=== PATIENT | male | born 1960 | race Hispanic/Latino ===

== ENCOUNTER 2017-11-22 13:02 | Inpatient (IN) | payer OTHER, SELFPAY ==
[~2017-11-22] VITALS: Ht 180.3 cm; Wt 101.3 kg
[~2017-11-22 13:02] MED LIST: AEC81 PO; ATOR40TA69 PO; CLOP75TA14 PO; GLIP5TAB11 PO; HYDR25TA PO; METF10004 PO; METO50TA18 PO
[2017-11-22 13:39] LABS: EOSINOPHILS % (AUTO) 1.8 % (0.0-8.0); HEMATOCRIT 41.5 % (42-54); LYMPHOCYTES % (AUTO) 18.6 % (21.0-51.0); MEAN CORPUSCULAR HEMOGLOBIN 26.8 pg (27.0-33.0); MEAN CORPUSCULAR HGB CONC 32.9 g/dL (32.0-36.0); MEAN CORPUSCULAR VOLUME 81.3 fL (79-99); MONOCYTES % (AUTO) 6.4 % (3.0-13.0); NEUTROPHILS % (AUTO) 72.2 % (40.0-77.0); PLATELET COUNT (AUTO) 272 K/uL (130-400); RED BLOOD CELL COUNT(AUTO) 5.11 MIL/uL (4.50-6.20); RED CELL DISTRIBUTION WIDTH 14.2 % (11.0-15.5); WHITE BLOOD COUNT (AUTO) 10.3 K/uL (4.8-10.8)
[2017-11-22 13:51] LABS: CREATININE 1.4 mg/dL (0.5-1.5); POTASSIUM 4.3 mmol/L (3.5-5.1)
[2017-11-22 14:02] LABS: INR 0.91 (0.85-1.15); PARTIAL THROMBOPLASTIN TIME 27.2 SEC (26.3-35.5); PROTHROMBIN TIME 9.6 SEC (9.6-11.6)
[2017-11-22 14:04] LABS: CREATINE KINASE MB 1.3 ng/mL (0.5-3.6)
[2017-11-22 14:11] LABS: ALBUMIN 3.3 g/dL (3.5-5.0); BILIRUBIN,TOTAL 0.3 mg/dL (0.2-1.0); TOTAL PROTEIN, SERUM 7.6 g/dL (6.0-8.3)
[2017-11-22] MEDS ORDERED: ASPIRIN 325 MG TABLET ONE (14:55)
[2017-11-22 17:35] VITALS: BP 173/87
[2017-11-22] MEDS ORDERED: NITR0.4T SL (17:56)
[2017-11-22] MEDS ORDERED: LOVA20TA3 PO (17:56)
[2017-11-22] MEDS ORDERED: LISI-613 PO (17:56)
[2017-11-22 20:10] VITALS: BP 185/64
[2017-11-22 20:38] LABS: CREATINE KINASE MB 1.2 ng/mL (0.5-3.6); CREATINE KINASE, TOTAL 54 U/L (21-232); MYOGLOBIN 58 ng/mL (10-92); TROPONIN I < 0.04 ng/mL (0.00-0.06)
[2017-11-22 21:30] VITALS: BP 169/91
[2017-11-22 23:09] VITALS: BP 153/92
[2017-11-23 02:06] LABS: CREATINE KINASE MB 0.8 ng/mL (0.5-3.6); CREATINE KINASE, TOTAL 44 U/L (21-232); MYOGLOBIN 47 ng/mL (10-92); TROPONIN I < 0.04 ng/mL (0.00-0.06)
[2017-11-23] MEDS ORDERED: ONDANSETRON HCL 4 MG/2 ML VIAL IV PRN (02:15)
[2017-11-23] MEDS ORDERED: HYDRALAZINE HCL 20 MG/ML VIAL IV PRN (02:15)
[2017-11-23 03:46] VITALS: BP 146/97
[2017-11-23 04:05] LABS: EOSINOPHILS % (AUTO) 3.2 % (0.0-8.0); HEMATOCRIT 36.8 % (42-54); LYMPHOCYTES % (AUTO) 28.6 % (21.0-51.0); MEAN CORPUSCULAR HEMOGLOBIN 27.5 pg (27.0-33.0); MEAN CORPUSCULAR HGB CONC 33.9 g/dL (32.0-36.0); MEAN CORPUSCULAR VOLUME 81.2 fL (79-99); NEUTROPHILS % (AUTO) 59.2 % (40.0-77.0); PLATELET COUNT (AUTO) 250 K/uL (130-400); RED BLOOD CELL COUNT(AUTO) 4.54 MIL/uL (4.50-6.20); RED CELL DISTRIBUTION WIDTH 14.4 % (11.0-15.5)
[2017-11-23 05:10] LABS: CREATININE 1.3 mg/dL (0.5-1.5); POTASSIUM 3.5 mmol/L (3.5-5.1)
[2017-11-23 05:33] LABS: THYROID STIMULATING HORMONE 1.88 uIU/mL (0.36-3.74)
[2017-11-23 07:26] VITALS: BP 162/102
[2017-11-23] MEDS: FAMOTIDINE 20MG TAB 20 MG TAB PO SCH ×2 (08:44→20:26)
[2017-11-23] MEDS: ASPIRIN 325 MG TABLET PO SCH (08:44)
[2017-11-23] MEDS: ENOXAPARIN SODIUM 40 MG/0.4 ML SYRINGE SQ SCH (08:47)
[2017-11-23] MEDS: ATORVASTATIN CALCIUM 20 MG TABLET PO SCH ×2 (08:47→20:28)
[2017-11-23 11:23] VITALS: BP 145/98
[2017-11-23 16:19] VITALS: BP 143/94
[2017-11-23] MEDS ORDERED: LIDOCAINE HCL-MPF 1% 2ML VIAL IVP PRN (16:30)
[2017-11-23] MEDS ORDERED: POTASSIUM CHLORIDE 10% ELIXIR 20 MEQ/15 ML UDCUP PO PRN (16:30)
[2017-11-23] MEDS ORDERED: POTASSIUM CHLORIDE 20MEQ/100ML 100 ML IV PRN (16:30)
[2017-11-23] MEDS: POTASSIUM CHLORIDE 20 MEQ ERTAB PO PRN ×2 (17:07→18:43)
[2017-11-23 19:29] VITALS: BP 145/100
[2017-11-23] MEDS: ACETAMINOPHEN 325 MG TAB PO PRN (20:29)
[2017-11-23 23:16] VITALS: BP 151/99
[2017-11-24] VITALS (7 sets, daily range): BP systolic 104–186; BP diastolic 67–110
[2017-11-24] MEDS: ASPIRIN 325 MG TABLET PO SCH (10:04)
[2017-11-24] MEDS: FAMOTIDINE 20MG TAB 20 MG TAB PO SCH ×2 (10:04→21:17)
[2017-11-24] MEDS: ENOXAPARIN SODIUM 40 MG/0.4 ML SYRINGE SQ SCH (10:05)
[2017-11-24] MEDS: ACETAMINOPHEN 325 MG TAB PO PRN ×2 (11:36→21:50)
[2017-11-24] MEDS ORDERED: NITROGLYCERIN 0.4 MG SL TAB SL SCH (12:30)
[2017-11-24] MEDS ORDERED: DEXTROSE 50%-WATER 50 ML DISP.SYRIN IV PRN (13:15)
[2017-11-24] MEDS ORDERED: GLUCAGON 1MG KIT 1 MG ML IM PRN (13:15)
[2017-11-24] MEDS ORDERED: CLOPIDOGREL BISULFATE 75 MG TAB PO ONE (15:00)
[2017-11-24] MEDS ORDERED: LISINOPRIL 20 MG TABLET PO ONE (15:00)
[2017-11-24] MEDS ORDERED: ATORVASTATIN CALCIUM 20 MG TABLET PO ONE (15:00)
[2017-11-24] MEDS ORDERED: HYDROCHLOROTHIAZIDE 25 MG TABLET PO ONE (15:00)
[2017-11-24] MEDS ORDERED: GLIPIZIDE 5 MG TABLET PO ONE (15:00)
[2017-11-24] MEDS ORDERED: METOPROLOL TARTRATE 25 MG TAB PO ONE (15:00)
[2017-11-24] MEDS: INSULIN HUMULIN R 100 UNIT/ML 3ML SQ SCH ×2 (16:17→21:00)
[2017-11-24] MEDS ORDERED: ATORVASTATIN CALCIUM 40 MG TABLET PO SCH (21:00)
[2017-11-24] MEDS ORDERED: ATORVASTATIN CALCIUM 20 MG TABLET PO SCH (21:00)
[2017-11-24] MEDS: METOPROLOL TARTRATE 25 MG TAB PO SCH (21:17)
[2017-11-24] MEDS: METOPROLOL TARTRATE 50 MG TAB PO SCH (21:17)
[2017-11-25 03:39] VITALS: BP 116/74
[2017-11-25] MEDS: INSULIN HUMULIN R 100 UNIT/ML 3ML SQ SCH ×3 (06:03→16:30)
[2017-11-25 07:20] VITALS: BP 145/90
[2017-11-25] MEDS ORDERED: GLIPIZIDE 5 MG TABLET PO SCH (09:00)
[2017-11-25] MEDS ORDERED: LISINOPRIL 20 MG TABLET PO SCH (09:00)
[2017-11-25] MEDS ORDERED: CLOPIDOGREL BISULFATE 75 MG TAB PO SCH (09:00)
[2017-11-25] MEDS ORDERED: ASPIRIN 81 MG EC TAB PO SCH (09:00)
[2017-11-25] MEDS: METOPROLOL TARTRATE 25 MG TAB PO SCH (09:00)
[2017-11-25] MEDS ORDERED: HYDROCHLOROTHIAZIDE 25 MG TABLET PO SCH (09:00)
[2017-11-25] MEDS: FAMOTIDINE 20MG TAB 20 MG TAB PO SCH (09:44)
[2017-11-25] MEDS: METOPROLOL TARTRATE 50 MG TAB PO SCH (09:46)
[2017-11-25] MEDS ORDERED: ATORVASTATIN CALCIUM 20 MG TABLET PO SCH (11:00)
[2017-11-25 11:35] VITALS: BP 141/88
[2017-11-25 16:15] VITALS: BP 135/82
== END 2017-11-25 17:45 | disposition home or self-care (01) | DRG 948 ==
LOC: EDH 13:02 → 2DH 13:03 → 2AH 17:17
PROVIDERS: ADMIT Family Medicine; ATTEND Family Medicine
DX: R53.1 Weakness (principal); I48.91 Unspecified atrial fibrillation; I10 Essential (primary) hypertension; E11.9 Type 2 diabetes mellitus without complications; E78.5 Hyperlipidemia, unspecified; I25.10 Atherosclerotic heart disease of native coronary artery without angina pectoris; Z86.73 Personal history of transient ischemic attack (TIA), and cerebral infarction without residual deficits; I25.5 Ischemic cardiomyopathy; Z95.0 Presence of cardiac pacemaker; I25.2 Old myocardial infarction
CPT/HCPCS: 36415; 70450; 72100; 80048; 80053; 80061; 82550; 82553; 82948; 83874; 84443; 84484; 85025; 85610; 85730; 92610; 93005; 93306; 93880; 99291; J0360; J1650; J1815

== ENCOUNTER → 2019-07-11 | Outpatient (CLI) | payer OTHER, MEDICARE ==
[~2019-07-11] MED LIST changes: +LISI-613 PO; +LOVA20TA3 PO; +METF-446 PO; -METF10004 PO; +NITR0.4T SL
== END | disposition home or self-care (01) ==
LOC: RAH 09:09
PROVIDERS: ATTEND Internal Medicine Cardiovascular Disease
DX: I08.0 Rheumatic disorders of both mitral and aortic valves (principal)
CPT/HCPCS: 93306

== ENCOUNTER → 2019-08-02 | Outpatient (CLI) | payer OTHER, MEDICARE ==
--- NOTE | 2019-07-18 12:58 | NUR ---
PT WAS A NO SHOW FOR DOS 07/18/19
[~2019-08-02] VITALS: Ht 180.3 cm; Wt 104.3 kg
[~2019-08-02] MED LIST changes: +REGADENOSON 0.4 MG/5 ML PF SYG IVP SCH
== END | disposition home or self-care (01) ==
LOC: SHCH 09:17
PROVIDERS: ATTEND Internal Medicine Cardiovascular Disease
DX: I25.10 Atherosclerotic heart disease of native coronary artery without angina pectoris (principal); I11.9 Hypertensive heart disease without heart failure
CPT/HCPCS: 78452; 93017; 96374; A9500 ×2; J2785

== ENCOUNTER → 2020-02-14 | Outpatient (CLI) | payer OTHER, MEDICARE ==
[~2020-02-14] MED LIST changes: -REGADENOSON 0.4 MG/5 ML PF SYG IVP SCH
== END | disposition home or self-care (01) ==
LOC: SHCH 10:46
PROVIDERS: ATTEND Internal Medicine Cardiovascular Disease
DX: I10 Essential (primary) hypertension (principal)
CPT/HCPCS: 93306; 93356; 93880

== ENCOUNTER → 2020-11-01 | Outpatient (CLI) | payer OTHER, MEDICARE ==
[~2020-11-01] MED LIST changes: +REGADENOSON 0.4 MG/5 ML PF SYG IVP SCH
== END | disposition home or self-care (01) ==
LOC: SHCH 08:40
PROVIDERS: ATTEND Internal Medicine Cardiovascular Disease
DX: I25.10 Atherosclerotic heart disease of native coronary artery without angina pectoris (principal)
CPT/HCPCS: 78452; 93017; 96374; A9500 ×2; J2785

== ENCOUNTER → 2022-06-11 | Outpatient (CLI) | payer OTHER, MEDICARE ==
[~2022-06-11] MED LIST changes: +ALBUTEROL 0.083% 2.5 MG/3 ML INH IH ONE; -LISI-613 PO; +LISI20TA24 PO; -REGADENOSON 0.4 MG/5 ML PF SYG IVP SCH
== END | disposition home or self-care (01) ==
LOC: RESP 09:05
PROVIDERS: ATTEND Internal Medicine Cardiovascular Disease
DX: R06.00 Dyspnea, unspecified (principal)
CPT/HCPCS: 94060; 94727; 94729

== ENCOUNTER → 2022-12-09 | Outpatient (CLI) | payer OTHER, MEDICARE ==
[~2022-12-09] MED LIST changes: -ALBUTEROL 0.083% 2.5 MG/3 ML INH IH ONE; +CLOP-31 PO; -CLOP75TA14 PO; +REGADENOSON 0.4 MG/5 ML PF SYG IVP SCH
== END | disposition home or self-care (01) ==
LOC: SHCH 08:55
PROVIDERS: ATTEND Internal Medicine Cardiovascular Disease
DX: I11.0 Hypertensive heart disease with heart failure (principal); I50.22 Chronic systolic (congestive) heart failure; I25.2 Old myocardial infarction; I44.2 Atrioventricular block, complete; E78.5 Hyperlipidemia, unspecified; Z95.0 Presence of cardiac pacemaker; Z79.899 Other long term (current) drug therapy
CPT/HCPCS: 78452; 96374; 93017; J2785; A9500 ×2

== ENCOUNTER → 2023-08-27 | Outpatient (CLI) | payer OTHER, MEDICARE ==
[~2023-08-27] MED LIST changes: -ATOR40TA69 PO; -CLOP-31 PO; +DULA1.5P SQ; +FOLI1TAB85 PO; -GLIP5TAB11 PO; -LISI20TA24 PO; -LOVA20TA3 PO; +METO-409 PO; -METO50TA18 PO; -NITR0.4T SL; -REGADENOSON 0.4 MG/5 ML PF SYG IVP SCH; +SACU1TAB PO; +SIMV-46 PO; +TRAM50TA4 PO; +VITAD50000 PO
== END | disposition home or self-care (01) ==
LOC: CANSCHCLI → RAH 10:00
PROVIDERS: ATTEND Internal Medicine Cardiovascular Disease
DX: G31.89 Other specified degenerative diseases of nervous system (principal); I67.9 Cerebrovascular disease, unspecified
CPT/HCPCS: 70450

== ENCOUNTER → 2023-11-11 | Outpatient (CLI) | payer OTHER, MEDICARE | END | disposition home or self-care (01) | LOC: SHCH 09:07 | PROVIDERS: ATTEND Internal Medicine Cardiovascular Disease | DX: I65.23 Occlusion and stenosis of bilateral carotid arteries (principal) | CPT/HCPCS: 93880 ==

== ENCOUNTER → 2024-08-10 | Outpatient (CLI) | payer OTHER, MEDICARE | END | disposition home or self-care (01) | LOC: SHCH 09:10 | PROVIDERS: ATTEND Internal Medicine Cardiovascular Disease | DX: I48.0 Paroxysmal atrial fibrillation (principal) | CPT/HCPCS: 93306 ==

== ENCOUNTER → 2024-11-17 | Outpatient (CLI) | payer OTHER, MEDICARE ==
[2024-11-17] MEDS: REGADENOSON 0.4 MG/5 ML PF SYG IVP ONE (15:08)
--- NOTE | 2024-11-18 08:14 | HMCSR ---
APPROVED REPORT Height: 6 ft 1in Weight: 210 lbs TEST INDICATIONS Congestive Heart Failure, i50.22 Chronic syst CHF The imaging protocol used to acquire images was Rest Tc-99m/stress Tc-99m 1 day Consent: The procedure was explained and understood by the patient. Informerd consent was witnessed Dion Hi RN First, low dose rest was performed then high dose stress. RESTING DATA: The resting ekg shows: A sensed V paced Rest SPECT myocardial perfusion imaging was performed in supine position 93 minutes following the int ravenous injection of 10.7 mCi of Tc-99 Sestamibi. Time of rest injection: 08:18: Date: 11/17/2024 Time of rest imagin:51: Date: 11/17/2024 PHARMACOLOGIC STRESS: Pharmacologic stress test was performed by injecting regadenoson 0.4 mg IV push followed by the intra venous injection of 32.0 mCi of Tc-99 Sestamibi. Time of stress injection: 10:17: Date: 11/17/2024 Time of stress imagin:00: Date: 11/17/2024 Heart Rate at time of stress injection: 74 bpm. Gated Stress SPECT was performed 103 minutes after stress injection. The images were gated to evaluate regional wall motion and calculate left ventricular ejection fracti on. STRESS DETAILS Reason for Termination: Infusion complete Stress Symptoms: Dyspnea Max HR Achieved: 83 bpm % of APMHR Achieved: 53 Max Blood Pressure: 191/101 mmHg Stress ECG: A sensed V paced Conclusion Inferior, apical and septal infarct No ischemia Dilated LV at rest and stress Inferior and apical akinesis LV ejection fractjion 34% No increased lung uptake
== END | disposition home or self-care (01) ==
LOC: SHCH 07:58
PROVIDERS: ATTEND Internal Medicine Cardiovascular Disease
DX: R06.09 Other forms of dyspnea (principal); I11.0 Hypertensive heart disease with heart failure; I50.22 Chronic systolic (congestive) heart failure
CPT/HCPCS: 78452; 93017; J2785; A9500 ×2

== ENCOUNTER → 2024-12-31 | Outpatient (CLI) | payer OTHER, MEDICARE ==
--- NOTE | 2025-01-03 08:56 | HMCSR ---
APPROVED REPORT EXAM: Two-dimensional and M-mode echocardiogram with Doppler and color Doppler. INDICATION ICD: I25.5 Ischemic cardiomyopathy 2D Dimensions RVDd4.1 cmLVEF(%)28.7 (>50%)LVEF(%, simp.)41 % IVSd1.1 (0.7-1.1cm)FS(%)13 %LA ESV INDEX (BP)28.63 mL/m2 LVDd5.1 (3.8-5.6cm)LA (2D)4.4 (1.6-4.0cm) PWd1.2 (0.7-1.1cm)Ao Root(2D)3.6 (2.0-3.7cm) IVSs1.5 cmLVOT diam2.2 (1.8-2.4cm) LVDs4.4 (2.5-4.0cm) PWs1.5 cm M-Mode Dimensions EPSS1.7 cm LA (MM)4.4 (1.6-4.0cm) Ao Root(MM)4.1 (2.0-3.7cm) Aortic Valve AoV Vmax1.1 m/Ashley Peak GR5.1 mmHgLVOT Vmax0.7 m/s AoV VTI0.2 mAo Mean GR2.9 mmHgLVOT VTI0.15 m JERARDO (VMAX)2.3 cm2AVA (VTI) 2.3 cm2 Mitral Valve MV E Vmax84.5 cm/sDECEL Mevp559 ms MV A Kwuk266.9 cm/sP 1/2 T34 ms E/A ratio0.8MVA (PHT)6.6 cm2 TDI E/E' Sribgb24.1E/E' Aqlsysg19.1 Medial E' Peak V6.00 cm/sLateral E' Peak V6.00 cm/s Pulmonary Valve PV Vmax0.6 m/s Tricuspid Valve TR Vmax2.5 m/sRAP (EST) 3 fqKxHUWJ29.4 mmHg TR Peak GR25.4 mmHg Left Ventricle The left ventricle is normal size. Hypokinetic distal inferior wall and apex. There is borderline con centric left ventricular hypertrophy. LVEF is 40-45%. Stage I diastolic dysfunction. Right Ventricle The right ventricle is normal size. The right ventricular systolic function is normal. Device lead is present in the right ventricle. Atria The left atrium size is normal. The right atrium size is normal. Aortic Valve The aortic valve is normal in structure. No aortic regurgitation is present. There is no aortic valvu lar stenosis. Mitral Valve The mitral valve is normal in structure. There is mild mitral valve regurgitation noted. There is no mitral valve stenosis. Tricuspid Valve The tricuspid valve is normal in structure. There is trace of tricuspid valve regurgitation noted. Pulmonic Valve The pulmonary valve is normal in structure. There is no pulmonic valvular regurgitation. Great Vessels The aortic root is normal in size. The IVC is normal in size and collapses >50% with inspiration. Pericardium There is no pericardial effusion. Other Information Quality : Adequate Conclusion LVEF is 40-45%. Stage I diastolic dysfunction. Hypokinetic distal inferior wall and apex. There is mild mitral valve regurgitation noted. There is trace of tricuspid valve regurgitation noted. Device lead is present in the right ventricle.
== END | disposition home or self-care (01) ==
LOC: SHCH 09:03
PROVIDERS: ATTEND Student in an Organized Health Care Education/Training Program
DX: I34.0 Nonrheumatic mitral (valve) insufficiency (principal); I25.5 Ischemic cardiomyopathy
CPT/HCPCS: 93306

== ENCOUNTER 2025-09-12 10:12 | Inpatient (IN) | payer OTHER, MEDICARE ==
[~2025-09-12] VITALS: Ht 177.8 cm; Wt 117.9 kg
[~2025-09-12 10:12] MED LIST changes: -AEC81 PO; +AMIO200T73 PO; +ATOR40TA71 PO; +DULA0.75 SQ; -DULA1.5P SQ; +FERR-82 PO; +FOLI0.8T53 PO; +GABA-529 PO; -HYDR25TA PO; -METF-446 PO; -METO-409 PO; +METO25TA6 PO; +MIDO10TA3 PO; -SACU1TAB PO; -SIMV-46 PO; +TAMS-55 PO; -TRAM50TA4 PO; -VITAD50000 PO
--- NOTE | 2025-09-12 10:25 | ERN ---
ED Note History of Present Illness Stated Complaint: SENT BY DETENTION FOR HYPOTENSION Chief Complaint: Hypotension Time Seen by MD: 10:25 Dictation: Patient is a 64-year-old female coming in via EMS [place] a local prison with complaints of being hypotensive this morning. Per the EMS staff his blood pressure was running 90s systolic. He does take midodrine for known hypotension. When EMS arrived they said he was hypotensive and then with a 2nd blood pressure check without intervention he was hypertensive. He is alert with generalized body weakness. He does have a pacemaker in place and two to 3+ edema lower extremities. He states he is not having any pain anywhere no headache no chest pain no back pain. Allergies: Coded Allergies: iodine (Unverified Allergy, Unknown, 09/12/15) Home Meds Reported Medications Ferrous Sulfate (Iron) 325 Mg (65 Mg Iron) Tablet, 1 TAB PO BID for 30 Days, #60 TAB 0 Refills 08/25/25 Gabapentin (Gabapentin) 100 Mg Capsule, 100 CAP PO TID for 30 Days, #90 CAP 0 Refills 08/25/25 Metoprolol Tartrate (Metoprolol Tartrate) 25 Mg Tablet, 1 TAB PO BID for 30 Days, #60 TAB 0 Refills 08/25/25 Folic Acid/Vit B Complex and C (Nephro Vitamins Tablet) 0.8 Mg Tablet, 0.8 MG PO DAILY, TAB 08/25/25 Midodrine HCl (Midodrine HCl) 10 Mg Tablet, 1 TAB PO TID for 30 Days, #90 TAB 0 Refills 08/25/25 Atorvastatin Calcium (Atorvastatin Calcium) 40 Mg Tablet, 1 TAB PO HS for 30 Days, #30 TAB 0 Refills 05/22/25 Tamsulosin HCl (Flomax) 0.4 Mg Cap.er.24h, 0.4 MG PO HS, CAPSULE. 05/22/25 Amiodarone HCl (Amiodarone HCl) 200 Mg Tablet, 200 MG PO BID, TAB 05/22/25 Dulaglutide (Trulicity) 0.75 Mg/0.5 Ml Pen.injctr, 0.5 ML SQ QWEEK for 28 Days, #2 ML 0 Refills 05/22/25 Vit B Cmplx 3/FA/Vit C/Biotin (Kristina-Navjot Rx Tablet) 1 Each Tablet, 1 EACH PO AM, TAB 02/06/23 Past Medical History Past Medical History: CHF, Diabetes-Type II, Heart Disease, Hypotension, CT, Renal Failure Additional Past Medical Hx: WEARS LIFEVEST Surgical History: Unknown RN Note Reviewed/Agreed w/PFSH: Yes Review of System Dictation CONSTITUTIONAL: Negative except for HPI generalized body weakness hypotension HEAD/FACE: Negative except for HPI EENT: Negative except for HPI RESPIRATORY: Negative except for HPI GASTROINTESTINAL/ABDOMINAL: Negative except for HPI GENITOURINARY: Negative except for HPI MUSCULOSKELETAL: Negative except for HPI INTEGUMENTARY: Negative except for HPI NEUROLOGICAL/PSYCH: Negative except for HPI HEMATOLOGIC/LYMPHATIC: Negative except for HPI All Systems Negative, Except as noted above. 13 point review of systems assessed and all negative except for above. Initial Vital Sign VS Vital Signs Date Time Temp Pulse Resp B/P (MAP) Pulse Ox O2 Delivery O2 Flow Rate FiO2 09/12/25 10:28 98.2 76 17 63/44 91 Room Air 0 09/12/25 11:41 21 Physical Exam Dictation Vital Signs reviewed General Appearance: Alert, oriented x 3, patient very debilitated and weak. Answering questions appropriately. Head and Face: non-traumatic. Eyes: PERRL, pink conjunctivas, eyelid no trauma, anterior chamber with arcus senilis. Ears: Pinnas intact and no signs of trauma or erythema ear canals clear and no discharge TM no erythema Nose: No discharge, no bleeding. Oropharynx: Mouth normal, tongue pink, pharynx clear,no erythema, tonsils no exudates, no abscesses noted, mucous membrane moist Neck: Supple, non-tender, no thyromegaly, no masses, no JVD, no bruits Breast:Deferred Chest:No tenderness, no crepitus, no paradoxical movement, no retractions Lungs:Clear, well-ventilated, symmetric, no rales, no wheezing, no rhonchi, no stridor, good breath sounds bilaterally Heart: Regular rate, regular rhythm, no murmur, no gallops Vascular: Two to 3+ peripheral edema, Abdomen: Soft, positive bowel sounds, nondistended, no guarding, nontender, no rebound, no masses no hepatomegaly, no splenomegaly, no Leiva's sign, no hernias. Rectal: Deferred Genital: Deferred Neurological: Normal speech, generalized weakness all extremities. Musculoskeletal: Neck nontender, full range of motion, back nontender, full range of motion, Extremities: nontender, full range of motion Skin: Color pink, dry, no turgor, no rash, no lacerations, no abrasions, no contusions. Lymphatic: Deferred Results (Laboratory/Radiology) Laboratory/Radiology Laboratory Tests Test 09/12/25 10:36 09/12/25 12:07 09/12/25 13:41 09/12/25 14:06 White Blood Count 14.6 K/uL (4.8-10.8) H Red Blood Count 3.42 MIL/uL (4.50-6.20) L Hemoglobin 9.5 g/dL (14.0-18.0) L Hematocrit 31.0 % (42-54) L Mean Corpuscular Volume 90.6 fL (79-99) Mean Corpuscular Hemoglobin 27.8 pg (27.0-33.0) Mean Corpuscular Hemoglobin Concent 30.6 g/dL (32.0-36.0) L Red Cell Distribution Width 25.2 % (11.0-15.5) H Platelet Count 113 K/uL (130-400) L Mean Platelet Volume 10.5 fL (7.5-10.5) Immature Granulocyte % (Auto) 1.4 % (0-1) H Neutrophils (%) (Auto) 78.3 % (40.0-77.0) H Lymphocytes (%) (Auto) 15.0 % (21.0-51.0) L Monocytes (%) (Auto) 3.8 % (3.0-13.0) Eosinophils (%) (Auto) 1.2 % (0.0-8.0) Basophils (%) (Auto) 0.3 % (0.0-5.0) Neutrophils # (Auto) 11.4 K/uL (1.8-7.7) H Lymphocytes # (Auto) 2.2 K/uL (1.0-4.8) Monocytes # (Auto) 0.6 K/uL (0.1-1.0) Eosinophils # (Auto) 0.18 K/uL (0.00-0.70) Basophils # (Auto) 0.04 K/uL (0.00-0.20) Absolute Immature Granulocyte (auto 0.21 K/uL (0-1) Nucleated Red Blood Cells 0.2 % (0.0-0.19) H Red Blood Cell Morphology See comments Prothrombin Time 25.9 SEC (9.6-11.6) H Prothromb Time International Ratio 2.70 (0.85-1.15) H D-Dimer Quantitative (PE/DVT) 3136 ng/mL (0-500) *H Sodium Level 138 mmol/L (136-145) Potassium Level 3.6 mmol/L (3.5-5.1) Chloride Level 100 mmol/L (101-111) L Carbon Dioxide Level 25 mmol/L (21-32) Blood Urea Nitrogen 46 mg/dL (7-18) H Creatinine 5.3 mg/dL (0.5-1.3) H Glomerular Filtration Rate Calc 11 mL/min (>90) Random Glucose 73 mg/dL (70-105) Total Calcium 7.9 mg/dL (8.5-10.1) L Magnesium Level 2.10 mg/dL (1.80-2.40) Troponin I High Sensitivity 718 ng/L (4-75) *H 884.2 ng/L (4-75) *H B-Type Natriuretic Peptide 954 pg/mL (0-100) H Lactic Acid Level 2.4 mmol/L (0.8-2.5) Total Creatine Kinase 81 U/L (21-232) Whole Blood Glucose 54 MG/DL (70-110) L Test 09/12/25 14:17 Whole Blood Glucose 51 MG/DL (70-110) L CLINICAL HISTORY: Shortness a breath/pacemaker COMPARISON: Radiograph dated August 30, 2025 Findings: AP view of the chest is submitted. Right IJ central venous catheter tip projects over the right atrium. Peripheral line overlies expected location of left axillary vessels. Mild pulmonary edema. This is improved from the prior examination. Small to moderate bilateral effusions. No pneumothorax. Stable cardiomegaly with pacemaker leads unchanged. Interval decrease pulmonary vascular congestion. IMPRESSION: 1. Mild pulmonary edema and bilateral pleural effusions, improved from prior. 2. Right IJ central venous catheter with tip projecting over the right atrium. /[place] Labs Reviewed?: Yes EKG Comment: 1050/EKG AV PACED RHYTHM/HEART RATE 76/NO ECTOPY ED Course ED Course Orders Procedure Category Date Status Time B-Type Natriuretic LAB 09/12/25 Complete Peptide 10:21 Cbc With Differential LAB 09/12/25 Complete 10:21 Chest 1vw RAD 09/12/25 Resulted 10:21 12 Lead Ekg Tracing- EKG 09/12/25 Complete Technical 10:21 Magnesium LAB 09/12/25 Complete 10:21 Troponin I High LAB 09/12/25 Complete Sensitivity 10:21 Basic Metabolic Panel LAB 09/12/25 Complete 10:21 Aspirin 325mg Tab PHA 09/12/25 Complete (Aspirin 325mg Tab) 11:30 Oxygen By Nc/Pulse Ox CPOE 09/12/25 Transmitted 11:23 Blood Cult RACHEL 09/12/25 In Process 11:47 Lactic Acid LAB 09/12/25 Complete 11:47 0.9%Nacl 1000ml (Ns PHA 09/12/25 Complete 1000ml) 12:30 Norepinephrin 4mg/Ns PHA 09/12/25 Complete 250ml (Levophed 4mg 12:29 Zosyn 3.375gm+Ns 50ml PHA 09/12/25 Complete (Zosyn 3.375gm+Ns 12:26 Cacl 1gm Syg (Calcium PHA 09/12/25 Complete Chloride 1g Syg) 13:24 Sodium Bicarb 50meq PHA 09/12/25 Complete 50ml Vial (Sodium Bi 13:24 Initiate Amiodarone [place] 09/12/25 In Process Administra 13:32 Amiodarone 900mg Vial PHA 09/12/25 Complete (Cordarone 900mg V 14:00 Amiodarone 900mg Vial PHA 09/12/25 Complete (Cordarone 900mg V 14:00 Dextrose 5%-Water PHA 09/12/25 In Process (... W/Amiodarone 900m 14:00 Nothing By Mouth DIET 09/12/25 Transmitted Lunch Cbc With Differential LAB 09/13/25 Verified 04:00 Magnesium LAB 09/13/25 Verified 04:00 Phosphorus LAB 09/13/25 Verified 04:00 Procalcitonin LAB 09/13/25 Verified 04:00 Lactate Dehydrogenase LAB 09/13/25 Verified 04:00 Cardiac Panel LAB 09/12/25 Complete 13:33 Cardiac Panel LAB 09/13/25 Verified 01:33 Thyroid Stimulating LAB 09/13/25 Verified Hormone 04:00 Vancomycin Protocol PHA 09/12/25 In Process (Vancomycin Protocol 14:00 Acetaminophen 325 Tab PHA 09/12/25 In Process (Tylenol 325mg Tab 14:00 Acetaminophen 650mg PHA 09/12/25 In Process Supp (Tylenol 650mg 14:00 Phenylephrine Hcl PHA 09/12/25 In Process (Phenylephrine Hcl) 14:00 Admit Orders ADM 09/12/25 Transmitted 13:33 Condition: CPOE 09/12/25 Transmitted 13:33 Initiate [place]NE 09/12/25 In Process Hyperglycemia Protoco 13:33 Pharmacy PHA 09/12/25 Complete Communication 14:00 Nephrology Consult CONPHYSVC 09/12/25 Transmitted 13:36 Cardiology Consult CONPHYSVC 09/12/25 Transmitted 13:38 Amiodarone PHA 09/12/25 Complete 150mg/100ml Bag 14:00 Amiodarone PHA 09/12/25 In Process 360mg/200ml Bag 14:15 Arterial Blood Gas + RT 09/12/25 Transmitted 13:39 Edm Admit Bridge Order ADM 09/12/25 Transmitted 13:40 Place Picc Line CPOE 09/12/25 Transmitted 13:45 Heparin 25,000 PHA 09/12/25 In Process Units/250ml D5w 14:00 Prothrombin Time With LAB 09/12/25 Complete INR 13:47 D-Dimer LAB 09/12/25 Complete 13:47 Meropenem 500mg PHA 09/12/25 In Process (Merrem 500mg) 14:30 Vancomycin 2gm/500 Ml PHA 09/12/25 In Process Bag (Vancomycin 2g 16:00 12 Lead Ekg Tracing- EKG 09/12/25 Complete Technical 13:21 Current Medications Medications (Trade) Dose Ordered Sig/Edi Route PRN Reason Start Time Stop Time Status Last Admin Dose Admin Aspirin (Aspirin 325mg Tab) 325 mg ONCE ONCE PO 09/12/25 11:30 09/12/25 11:31 DC 09/12/25 12:40 Calcium Chloride (Calcium Chloride 1g Syg) 1,000 mg ONCE STAT IVP 09/12/25 13:24 09/12/25 13:28 DC 09/12/25 13:39 Norepinephrine 250 ml @ 0 mls/hr PROTOCOL STAT IV 09/12/25 12:29 09/12/25 12:30 DC 09/12/25 12:56 Piperacillin Sod/ Tazobactam Sod (Zosyn 3.375gm+NS 50ml) 3.375 gm ONCE STAT IV 09/12/25 12:21 09/12/25 12:22 Cancel Piperacillin Sod/ Tazobactam Sod (Zosyn 3.375gm+NS 50ml) 3.375 gm ONCE STAT IVPB 09/12/25 12:26 09/12/25 12:31 DC 09/12/25 12:39 Sodium Bicarbonate (Sodium Bicarb 50meq 50ml Vial) 50 meq ONCE STAT IV 09/12/25 13:24 09/12/25 13:28 DC 09/12/25 13:39 Sodium Chloride 1,000 ml @ 0 mls/hr ONCE ONCE IV 09/12/25 12:30 09/12/25 12:31 DC 09/12/25 12:55 Vital Signs Date Time Temp Pulse Resp B/P (MAP) Pulse Ox O2 Delivery O2 Flow Rate FiO2 09/12/25 14:15 98.2 120 17 190/78 90 Room Air* 0 09/12/25 14:00 98.2 128 17 100/56 88 Room Air* 0 09/12/25 13:45 98.2 137 17 100/56 88 Room Air* 0 09/12/25 13:30 98.2 96 17 96/64 99 Room Air* 0 09/12/25 13:15 98.2 98 17 117/85 96 Room Air* 0 09/12/25 11:41 98.2 74 17 79/53 93 Room Air* 0 09/12/25 10:28 98.2 76 17 63/44 91 Room Air 0 1228/PATIENT IS HYPOTENSIVE 79/53 WITH HEART RATE 74. FOURTEEN THOUSAND WHITE COUNT. BLOOD CULTURES WERE DRAWN PATIENT WILL BE STARTED ON ZOSYN FOR PRESUMED SEPSIS AND LEVOPHED STARTED TO BRING A BLOOD PRESSURE. BE MONITORED CLOSELY FOR HEMODYNAMIC STABILITY. PATIENT IN SEPTIC SHOCK AND WE WILL BE ADMITTED TO ICU FOR BENCHMARK. TAKE 1330/PATIENT IS HAVING WIDE RHYTHM QRS AND HYPOTENSION. HE WILL BE GIVEN CALCIUM. ER MD SPOKE WITH DR. SUÁREZ, HE AGREES TO CONSU SPOKE WITH DAMARIS GUTIERREZ HOSPITALIST FOR BENCHMARK AND REVIEWED INTERVENTIONS FOR SEPTIC SHOCK AND WIDE QRS EKG. PATIENT TO ICU. HEART Score Response (Comments) Value EKG: Repolarization changes 1 Risk Factors: 3+ risk factors (+2) 2 Initial Troponin: >3x Normal Limit (+2) 2 Total 5 Medical Decision Making MDM MDM: DIFFERENTIAL DIAGNOSIS: ACS/AMI/FLUID OVERLOAD/ELECTROLYTE IMBALANCE/DEHYDRATION/SEPSIS RATIONALE: TESTS CONSIDERED AND ORDERED SECONDARY TO SHARED DECISION MAKING INCLUDE: LABS, ECG AND RADIOLOGY PREVIOUS OUTSIDE RECORDS REVIEWED: OLD ER VISITS. RISK OF COMPLICATION AND/OR MORBIDITY OR MORTALITY OF PATIENT MANAGEMENT: MODERATE TO SEVERE MEDICATIONS-PER MEDICATION RECONCILIATION NEED FOR HOSPITALIZATION: PATIENT DOES MEET CRITERIA FOR HOSPITALIZATION. PATIENT WILL BE ADMITTED TO ICU FOR SEPTIC SHOCK MANAGEMENT OF HIS FLUID OVERLOAD AND LEUKOCYTOSIS. NEED FOR EMERGENCY MAJOR/MINOR SURGERY: NO THERE ARE NO SOCIAL CONCERNS WITH THIS PATIENT. PRESCRIPTION DRUG MANAGEMENT PRESCRIPTIONS WILL INCLUDE SYMPTOMATIC CARE PATIENT'S PRIOR EXTERNAL MEDICAL RECORDS FROM OTHER ER VISITS WERE REVIEWED BY ME INDICATED. PRIOR TESTING AND RESULTS FROM PREVIOUS VISITS WERE REVIEWED. PRIOR TESTS WERE TAKEN INTO ACCOUNT WITH MEDICAL DECISION MAKING AND RESOURCE UTILIZATION, INDEPENDENT HISTORIAN/HISTORIANS WERE USED TO OBTAIN COMPLETE MEDICAL HISTORY. I INDEPENDENTLY INTERPRETED THE TEST THAT WERE PERFORMED, RESULTS WERE REVIEWED BY ME AND CONSIDERED FINDINGS ON RADIOLOGY IF ORDERED. MEDICAL MANAGEMENT AND EXAMINATION INTERPRETATION DISCUSSIONS WERE HAD BY ME WITH OTHER QUALIFIED HEALTHCARE PROFESSIONALS INDICATED FOR THE PATIENT'S CARE. Patient was seen and evaluated alongside with nurse practitioner, comanaged patient who is acutely ill, was a 64-year-old with acute decompensated CHF longstanding history with cardiac arrest, was hypotensive and fluid overloaded on arrival, patient was covered with broad-spectrum antibiotics for occult sepsis, given bicarb and calcium for inorganic acidosis secondary to longstanding end-stage renal disease, patient was placed on adrenergic pressors of Levophed due to the refractory hypotension, truly after admission patient had run of ventricular tachycardia and went pulseless with the critical Care group at bedside, cardiology was also consulted, patient had ACLS intubated had brief episodes of return of spontaneous circulation but was on sustained, patient was also given amiodarone, and was refractory to cardioversion/defibrillation, ultimately resuscitation was deemed futile and patient family was upd ated. Critical Care Note Comment(s) Total critical care time was 33 minutes. Excluding time for procedures. Management of critically ill patient with concern for acute decompensation. Management included interpretation of laboratory values and imaging, hemodynamics, time for consultation with consultants and admitting physician. DX & DISP Disposition: Inpatient Decision to Admit Time: 12:58 Departure Impression: Primary Impression: Septic shock Additional Impressions: Fluid overload, ESRD needing dialysis, Anemia of chronic kidney failure, Hypochloremia, Elevated troponin level not due my ocardial infarction, Pleural effusion, bilateral, Pulmonary edema Condition: Stable Referrals: ABRAM DAVIS M.D. (PCP) Time of Disposition: 12:58 I have reviewed the case, and I agree with, Diagnosis and Plan GENO JIMENEZ Sep 12, 2025 10:25 KATELYN JEWELL MD Sep 12, 2025 15:17
[2025-09-12 10:41] LABS: IMMATURE GRANULOCYTE ABSOLUTE 0.21 K/uL (0-1); NUCLEATED RED BLOOD CELLS 0.2 % (0.0-0.19); PLATELET COUNT (AUTO) 113 K/uL (130-400); RED BLOOD CELL COUNT(AUTO) 3.42 MIL/uL (4.50-6.20); RED CELL DISTRIBUTION WIDTH 25.2 % (11.0-15.5); WHITE BLOOD COUNT (AUTO) 14.6 K/uL (4.8-10.8)
[2025-09-12 10:52] LABS: CREATININE 5.3 mg/dL (0.5-1.3); GLOMERULAR FILTR. RATE CALC 11.0 mL/min (>90); GLUCOSE,RANDOM 73.0 mg/dL (70-105); SODIUM SERUM 138.0 mmol/L (136-145); UREA NITROGEN, BLOOD 46.0 mg/dL (7-18)
--- NOTE | 2025-09-12 10:58 | NUR ---
PT PLACED IN ED BED 2
--- NOTE | 2025-09-12 11:35 | NUR ---
Yoana drake in EDM - 09/12/25 at 1137 by CARMEN PER MOTHER , PT CABG SEPT, HEART MONTIOR 2 WKS LATER, STROKE IN OCT
--- NOTE | 2025-09-12 11:38 | NUR ---
PER MOTHER , PT CABG SEPT, HEART MONTIOR 2 WKS LATER, STROKE IN OCT
--- NOTE | 2025-09-12 11:46 | HMCIMG ---
EXAM: CR Chest, 2 View. CLINICAL HISTORY: Shortness a breath/pacemaker COMPARISON: Radiograph dated August 30, 2025 Findings: AP view of the chest is submitted. Right IJ central venous catheter tip projects over the right atrium. Peripheral line overlies expected location of left axillary vessels. Mild pulmonary edema. This is improved from the prior examination. Small to moderate bilateral effusions. No pneumothorax. Stable cardiomegaly with pacemaker leads unchanged. Interval decrease pulmonary vascular congestion. IMPRESSION: 1. Mild pulmonary edema and bilateral pleural effusions, improved from prior. 2. Right IJ central venous catheter with tip projecting over the right atrium. /[place]
[2025-09-12] MEDS ORDERED: ZOSYN 3.375GM +NS 50ML IV STA (12:21)
[2025-09-12] MEDS: ZOSYN 3.375GM +NS 50ML IVPB STA (12:39)
[2025-09-12] MEDS: ASPIRIN 325MG TAB PO ONE (12:40)
[2025-09-12] MEDS: 0.9%NACL 1000ML 1,000 ML IV ONE (12:55)
[2025-09-12] MEDS: NOREPINEPHRIN 4MG/NS 250ML 250 ML IV STA (12:56)
--- NOTE | 2025-09-12 13:05 | NUR ---
REPORT RECEIVED FROM VINOD ROBERTS. PATIENT CARE ASSUMED AT THIS TIME.
--- NOTE | 2025-09-12 13:26 | NUR ---
ABNORMAL RHYTHM OBSERVED. PT'S MOTHER REPORTS ALTERED MENTAL STATUS. PT REPORTS LEFT ARM PAIN. ER MD MADE AWARE.
[2025-09-12] MEDS: CACL 1GM SYG IVP STA (13:39)
[2025-09-12] MEDS: SODIUM BICARB 50MEQ 50ML VIAL IV STA (13:39)
--- NOTE | 2025-09-12 13:48 | HP ---
[facility] HISTORY & PHYSICAL Date Patient Seen: Sep 12, 2025 Time of Visit: 13:48 Supervising Physician: [ ] Primary Care Physician: [ ] Outpatient Specialists: [ ] Inpatient Consults: [ ] PROBLEM LIST: 1. [ ] 2. [ ] 3. [ ] 4. [ ] 5. [ ] HPI: [ ] PAST MEDICAL HX: see above PAST SURGICAL HX: noncontributory SOCIAL HISTORY: No tobacco, ETOH, or illicit drug use Coded Allergies: iodine (Unverified Allergy, Unknown, 09/12/15) REVIEW OF SYSTEMS: 12 point ROS reviewed with patient. Pertinent positives mentioned above. Otherwise negative. PHYSICAL EXAM: GENERAL: alert, weak, awake oriented x 3 HEENT: EOMI, Sclera non icteric, moist mucosa NECK: Supple, no JVD, trachea midline LUNGS: Clear breath sounds bilaterally. No wheezes HEART: Regular rate and rhythm. Normal S1 and S2, without murmurs ABD: Abdomen soft, nontender. Bowel sounds present EXT: No clubbing cyanosis or edema NEURO: Alert and oriented to person, follows commands Vital Signs (last 8hr) Date Time Temp Pulse Resp B/P (MAP) Pulse Ox O2 Delivery O2 Flow Rate FiO2 09/12/25 11:41 98.2 74 17 79/53 93 Room Air* 0 21 09/12/25 10:28 98.2 76 17 63/44 91 Room Air 0 LABS: Hematology Labs: Test 09/12/25 10:36 Range/Units White Blood Count 14.6 H 4.8-10.8 K/uL Red Blood Count 3.42 L 4.50-6.20 MIL/uL Hemoglobin 9.5 L 14.0-18.0 g/dL Hematocrit 31.0 L 42-54 % Mean Corpuscular Volume 90.6 79-99 fL Mean Corpuscular Hemoglobin 27.8 27.0-33.0 pg Mean Corpuscular Hemoglobin Concent 30.6 L 32.0-36.0 g/dL Red Cell Distribution Width 25.2 H 11.0-15.5 % Platelet Count 113 L 130-400 K/uL Mean Platelet Volume 10.5 7.5-10.5 fL Immature Granulocyte % (Auto) 1.4 H 0-1 % Neutrophils (%) (Auto) 78.3 H 40.0-77.0 % Lymphocytes (%) (Auto) 15.0 L 21.0-51.0 % Monocytes (%) (Auto) 3.8 3.0-13.0 % Eosinophils (%) (Auto) 1.2 0.0-8.0 % Basophils (%) (Auto) 0.3 0.0-5.0 % Neutrophils # (Auto) 11.4 H 1.8-7.7 K/uL Lymphocytes # (Auto) 2.2 1.0-4.8 K/uL Monocytes # (Auto) 0.6 0.1-1.0 K/uL Eosinophils # (Auto) 0.18 0.00-0.70 K/uL Basophils # (Auto) 0.04 0.00-0.20 K/uL Absolute Immature Granulocyte (auto 0.21 0-1 K/uL Nucleated Red Blood Cells 0.2 H 0.0-0.19 % Red Blood Cell Morphology See comments Chemistry Labs: Test 09/12/25 12:07 09/12/25 10:36 Range/Units Lactic Acid Level 2.4 0.8-2.5 mmol/L Sodium Level 138 136-145 mmol/L Potassium Level 3.6 3.5-5.1 mmol/L Chloride Level 100 L 101-111 mmol/L Carbon Dioxide Level 25 21-32 mmol/L Blood Urea Nitrogen 46 H 7-18 mg/dL Creatinine 5.3 H 0.5-1.3 mg/dL Glomerular Filtration Rate Calc 11 >90 mL/min Random Glucose 73 70-105 mg/dL Total Calcium 7.9 L 8.5-10.1 mg/dL Magnesium Level 2.10 1.80-2.40 mg/dL Troponin I High Sensitivity 718 *H 4-75 ng/L B-Type Natriuretic Peptide 954 H 0-100 pg/mL DIAGNOSTICS / RADIOLOGY RESULTS: [ ] PLAN NEURO: Minimize central acting medications as possible. Fall Precautions. Well lighted room through the day and minimize interruptions through the night to prevent acute delirium. PULMONARY: Supplemental 02 as needed Titrate Fio2 to keep Spo2 > or = 90% DuoNebs and CPT as needed IS hourly while awake for pulmonary hygiene Out of bed to chair as tolerated VAP Bundle Vent/BIPAP Settings: [ ] Driving pressure: [ ] P Plat: [ ] Static C: [ ] Static R: [ ] P/F Ratio: [ ] CARDIOVASCULAR: Follow hemodynamics. Titrate vasopressor to keep MAP >65 or systolic blood pressure >95mmHg DIPS: [ ] LINES: [ ] GI & NUTRITION: Continue nutritional support Aspirations precautions Prokinetic agents and laxatives as needed KIDNEYS & ELECTROLYTES: Strict monitoring of intake and output Daily weights Avoid nephrotoxic agents Monitor electrolytes and replace as needed Goal urine output of 30mL/hr or 0.5mL/kg/hr Urine output: [ ] Fluid Balance: [ ] ENDOCRINE: Maintain blood glucose between 100-180 at all times. Insulin sliding scale for blood glucose management INFECTIOUS DISEASE: Trend temperature. Moreau-culture if febrile. Micro: [ ] Antibiotics: [ ] HEMATOLOGY & COAGULATION: Monitor H&H. Keep Hgb > 7 Transfuse 1 unit of PRBC for Hgb < 7 Transfuse 1 pack of platelets of platelets < 20, 000 Watch for any signs and symptoms of bleeding SKIN: Pressure ulcer prevention per facility protocol Rehab: PT/OT Prophylaxis: GI: [ ] DVT: [ ] Code Status: Full Resuscitation Disposition: [ ] Other: Total patient care time exceeds 35 minutes excluding all procedures. Case was discussed and seen with my supervising physician. The above plan was formulated and agreed upon. DAMARIS PATEL [facility] Sep 12, 2025 13:48
--- NOTE | 2025-09-12 13:50 | NUR ---
PATIENT IS PULSELESS AND APNEIC. CPR INITIATED. CODE BLUE CALLED. SEE CODE SHEET.
[2025-09-12] MEDS ORDERED: AMIOdarone 150MG/100ML BAG 100 ML IV ONE (14:00)
[2025-09-12] MEDS ORDERED: VANCOMYCIN PROTOCOL PER PHARMACY IV SCH (14:00)
[2025-09-12] MEDS ORDERED: PHARMACY COMMUNICATION MISC SCH (14:00)
[2025-09-12 14:05] LABS: CREATINE KINASE, TOTAL 81.0 U/L (21-232)
[2025-09-12 14:15] VITALS: BP 190/78; PULSE 120; RESP 17; TEMP 98.2; O2SAT 90
[2025-09-12] MEDS ORDERED: AMIODARONE 360MG/200ML BAG 200 ML IV SCH (14:15)
[2025-09-12] MEDS ORDERED: MEROPENEM 500MG 500 MG VIAL IVPB SCH (14:30)
[2025-09-12 14:31] LABS: INR 2.7 (0.85-1.15)
--- NOTE | 2025-09-12 14:34 | EKG ---
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
--- NOTE | 2025-09-12 14:42 | EKG ---
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1960 Requested By: ELAINE SARAVIA Order Number: [id number] Reading MD: Myra Jackson Measurements Intervals [place] Rate: 110 P: 0 RI: 0 QRS: -95 QRSD: 154 T: 80 QT: 469 QTc: 635 Interpretive Statements Afib/flut and V-paced complexes Right bundle branch block Inferior infarct, old Probable anteroseptal infarct, recent Prolonged QT interval Compared to ECG 09/12/2025 10:50:46 Right bundle-branch block now present Myocardial infarct finding now present Prolonged QT interval now present Electronically Signed On 09-12-2025 19:40:22 DESKTOP ARCHITECT by Myra Jackson Please click the below link to view image of tracing.
[2025-09-12] MEDS ORDERED: VANCOMYCIN 2GM/500 ML BAG 500 ML IV ONE (16:00)
--- NOTE | 2025-09-12 16:41 | NUR ---
PATIENT CORPSE TAKEN [place] [facility] [place] [facility] [place]
== END 2025-09-12 14:21 | DRG 871 ==
LOC: EDH 10:12 → EDHIP 13:33
PROVIDERS: ADMIT Internal Medicine Critical Care Medicine; ATTEND Internal Medicine Critical Care Medicine
PROC: 5A12012 Performance of Cardiac Output, Single, Manual (ICD-10-PCS; principal; 2025-09-12)
PROC: 0BH17EZ Insertion of Endotracheal Airway into Trachea, Via Natural or Artificial Opening (ICD-10-PCS; 2025-09-12)
DX: A41.9 Sepsis, unspecified organism (principal); R65.21 Severe sepsis with septic shock; Z99.2 Dependence on renal dialysis; E11.9 Type 2 diabetes mellitus without complications; I50.9 Heart failure, unspecified; I25.2 Old myocardial infarction; Z79.899 Other long term (current) drug therapy
CPT/HCPCS: 31500; 36415; 71045; 80048; 82550; 82948; 83605; 83735; 83880; 84484; 85025; 85378; 85610; 87040; 92950; 93005; 96374; 99291; G0378; J0282; J2543; J3490; J7030; J7060; J0283; J3375